=== PATIENT | female | born 1980 | race Caucasian/White ===

== ENCOUNTER 2016-10-26 04:49 | Inpatient (IN) | payer BC ==
[~2016-10-26] VITALS: Ht 162.6 cm; Wt 59.9 kg
[2016-10-26] VITALS (10 sets, daily range): BP systolic 104–124
[2016-10-26 05:38] LABS: BILIRUBIN,URINE 1+ (NEGATIVE); BLOOD, URINE 2+ (NEGATIVE); CLARITY/URINE CLOUDY (CLEAR); COLOR,URINE YELLOW (YELLOW); GLUCOSE,URINE NEGATIVE (NEGATIVE); KETONES,URINE TRACE (NEGATIVE); LEUKOCYTE ESTERASE ,URINE NEGATIVE (NEGATIVE); NITRITE, URINE NEGATIVE (NEGATIVE); PH,URINE 5.5 (5.0-8.0); PROTEIN URINE 2+ (NEGATIVE)
[2016-10-26] MEDS ORDERED: MORPHINE 4 MG/ML INJ. SYRINGE IVP ONE (05:45)
[2016-10-26] MEDS ORDERED: NACL 0.9% 1,000 ML IV ONE (05:45)
[2016-10-26] MEDS ORDERED: PROCHLORPERAZINE EDISYLATE 10 MG/2 ML VIAL IVP ONE (05:45)
[2016-10-26 05:46] LABS: BACTERIA,URINE MODERATE /HPF (None Seen); RBC,URINE 0-3 /HPF (0-3)
[2016-10-26 05:47] LABS: FINE GRANULAR CASTS,URINE 0-10 /LPF (None Seen); MUCUS,URINE None Seen /LPF (None Seen); URINE AMORPHOUS URATE 2+ /HPF (None Seen)
[2016-10-26 05:58] LABS: HEMATOCRIT 45.7 % (36-48); HEMOGLOBIN 14.6 g/dL (12.0-16.0); MEAN CORPUSCULAR HEMOGLOBIN 29 pg (27-31); MEAN CORPUSCULAR HGB CONC 32 % (32-36); MEAN CORPUSCULAR VOLUME 91 fL (79.0-98.0); PLATELET COUNT (AUTO) 381 K/uL (130-430); RED CELL DISTRIBUTION WIDTH 11.9 % (9.0-15.0); WHITE BLOOD COUNT (AUTO) 12.4 K/uL (4.8-10.8)
[2016-10-26 06:04] LABS: CALCIUM 8.6 mg/dL (8.4-11.0); CREATININE 1.28 mg/dL (0.55-1.30)
[2016-10-26 06:08] LABS: ALBUMIN 2.9 g/dL (3.4-4.8); TOTAL BILIRUBIN 0.7 mg/dL (0.0-1.0); TOTAL PROTEIN, SERUM 7.2 g/dL (6.4-8.3)
[2016-10-26 06:19] LABS: BAND % (MANUAL) 19 % (0-6); BASOPHILS % (MANUAL) 0 % (0-2); EOSINOPHILS % (MANUAL) 1 % (0-7); LYMPHOCYTES % (MANUAL) 11 % (20-46); MONOCYTES % (MANUAL) 4 % (0-11)
[2016-10-26] MEDS ORDERED: IOHEXOL 100 ML IV ONE (06:40)
[2016-10-26] MEDS ORDERED: MORPHINE 2 MG/ML INJ. SYRINGE IVP ONE (06:45)
[2016-10-26] MEDS ORDERED: DIPHENHYDRAMINE INJ 50 MG/ML VIAL IVP ONE (08:30)
[2016-10-26] MEDS ORDERED: PIPERACILLIN/TAZO 3.375 GM in NS 50 ML IV ONE (08:30)
[2016-10-26] MEDS ORDERED: HYDROmorphone 1 MG INJ. 1 MG/ML AMPUL IVP ONE (08:30)
[2016-10-26] MEDS ORDERED: ONDANSETRON HCL 4 MG/2 ML VIAL IVP ONE ×2 (08:30→17:30)
[2016-10-26] MEDS ORDERED: PIPERACILLIN/TAZOBACTAM 3.375 GM/VIAL (ZOSYN) IV ONE (08:33)
[2016-10-26] MEDS ORDERED: HYDROmorphone 1 MG INJ. 1 MG/ML AMPUL IVP PRN (10:00)
[2016-10-26] MEDS ORDERED: ONDANSETRON HCL 4 MG/2 ML VIAL IVP PRN ×3 (10:00→19:30)
[2016-10-26 10:04] LABS: INR 1.1 (0.8-1.2); PROTHROMBIN TIME 12.4 SECS (9.5-12.5)
[2016-10-26] MEDS: PIPERACILLIN/TAZO 3.375/DEX-IS 50 ML IV SCH ×2 (12:17→21:47)
[2016-10-26] MEDS ORDERED: SEVOFLURANE 15 MIN GAS INH ONE (17:30)
[2016-10-26] MEDS ORDERED: ACETAMINOPHEN 650 MG SUPP.RECT RC PRN ×2 (17:30→17:45)
[2016-10-26] MEDS ORDERED: MIDAZOLAM HCL 5 MG/5 ML VIAL IVP ONE (17:30)
[2016-10-26] MEDS ORDERED: LR 1,000 ML IV.SOLN IV ONE (17:30)
[2016-10-26] MEDS ORDERED: NS 1000 ML BAG IV ONE (17:30)
[2016-10-26] MEDS ORDERED: ACETAMINOPHEN 325 MG TABLET PO PRN ×3 (17:30→19:30)
[2016-10-26] MEDS ORDERED: GLYCOPYRROLATE 0.2 MG/ML VIAL IJ ONE (17:30)
[2016-10-26] MEDS ORDERED: PROPOFOL 200MG/ 20ML VIAL (DIPRIVAN) IV ONE (17:30)
[2016-10-26] MEDS ORDERED: fentaNYL CITRATE 250 MCG/5 ML AMP IV ONE (17:30)
[2016-10-26] MEDS ORDERED: BUPIVACAINE /EPINEPHRINE/PF 0.25% 30 ML VIAL INJ ONE (17:30)
[2016-10-26] MEDS ORDERED: NEOSTIGMINE METHYLSULFATE 1 MG/ML, 10 ML VIAL IVP ONE (17:30)
[2016-10-26] MEDS ORDERED: ROCURONIUM BROMIDE 10 MG/ML (ZEMURON) IV ONE (17:30)
[2016-10-26] MEDS: D5LR 1,000 ML IV SCH ×2 (17:32→23:10)
[2016-10-26] MEDS ORDERED: MORPHINE 2 MG/ML INJ. SYRINGE IVP PRN ×4 (18:30→19:45)
[2016-10-26] MEDS ORDERED: MORPHINE 4 MG/ML INJ. SYRINGE IVP PRN (18:30)
[2016-10-26] MEDS ORDERED: HYDROcodone/ACETAMIN 5-325 MG TAB (NORCO/ VICODIN) PO PRN (19:30)
[2016-10-26] MEDS ORDERED: LR 1,000 ML IV SCH (19:41)
[2016-10-26] MEDS ORDERED: METOCLOPRAMIDE HCL 10 MG/2 ML VIAL IVP PRN (19:45)
[2016-10-26] MEDS: D5/0.45 NS 1,000 ML IV SCH (21:04)
[2016-10-26] MEDS ORDERED: metroNIDAZOLE 500 mg/NS 100 ML IV ONE (21:50)
[2016-10-26] MEDS ORDERED: CEFAZOLIN 2 GM IVPB PREMIX 50 ML IV ONE (21:51)
[2016-10-26] MEDS: CEFAZOLIN 2 GM IVPB PREMIX 50 ML IV SCH (22:22)
[2016-10-26] MEDS: metroNIDAZOLE 500 mg/NS 100 ML IV SCH (22:28)
[2016-10-26] MEDS: HYDROmorphone 1 MG INJ. 1 MG/ML AMPUL IVP PRN (23:40)
[2016-10-27] VITALS (21 sets, daily range): BP systolic 109–131
[2016-10-27] MEDS ORDERED: CEFAZOLIN 2 GM IVPB PREMIX 50 ML IV ONE (00:12)
[2016-10-27] MEDS ORDERED: metroNIDAZOLE 500 mg/NS 100 ML IV ONE (00:12)
[2016-10-27] MEDS: PIPERACILLIN/TAZO 3.375/DEX-IS 50 ML IV SCH ×5 (01:39→23:59)
[2016-10-27] MEDS: metroNIDAZOLE 500 mg/NS 100 ML IV SCH (03:01)
[2016-10-27] MEDS: CEFAZOLIN 2 GM IVPB PREMIX 50 ML IV SCH (04:28)
[2016-10-27] MEDS: D5/0.45 NS 1,000 ML IV SCH ×2 (05:32→08:43)
[2016-10-27 06:40] LABS: BASOPHILS % (AUTO) 0.1 % (0.0-2.0); HEMOGLOBIN 12.8 g/dL (12.0-16.0); LYMPHOCYTES # (AUTO) 0.5 K/uL (1.0-5.5); MONOCYTES % (AUTO) 8.6 % (1.7-9.3); RED CELL DISTRIBUTION WIDTH 12.1 % (9.0-15.0)
[2016-10-27 07:04] LABS: EOSINOPHILS % (AUTO) 0.2 % (0.0-4.0); HEMATOCRIT 38.9 % (36-48); LYMPHOCYTES % (AUTO) 5.5 % (20.5-51.5); MEAN CORPUSCULAR HEMOGLOBIN 30 pg (27-31); MEAN CORPUSCULAR HGB CONC 33 % (32-36); MEAN CORPUSCULAR VOLUME 92 fL (79.0-98.0); MONOCYTES # (AUTO) 0.7 K/uL (0.0-1.0); NEUTROPHILS # (AUTO) 7.4 K/uL (1.8-7.7); NEUTROPHILS % (AUTO) 85.6 % (40.0-70.0); PLATELET COUNT (AUTO) 376 K/uL (130-430); RED BLOOD CELL COUNT(AUTO) 4.24 MIL/uL (4.2-6.2); WHITE BLOOD COUNT (AUTO) 8.6 K/uL (4.8-10.8)
[2016-10-27 07:16] LABS: ALBUMIN 1.8 g/dL (3.4-4.8); CALCIUM 7.4 mg/dL (8.4-11.0); CREATININE 1.09 mg/dL (0.55-1.30); POTASSIUM 3.7 mmol/L (3.5-5.1); TOTAL BILIRUBIN 0.4 mg/dL (0.0-1.0); TOTAL PROTEIN, SERUM 5.7 g/dL (6.4-8.3)
[2016-10-27] MEDS: HYDROmorphone 1 MG INJ. 1 MG/ML AMPUL IVP PRN ×4 (08:50→21:14)
[2016-10-27] MEDS ORDERED: DEXTROSE 50% JECT 50 ML DISP.SYRIN IVP PRN (09:45)
[2016-10-27] MEDS ORDERED: *PPN PER PHARMACY XX PRN (09:45)
[2016-10-27 10:28] LABS: PHOSPHORUS 2.5 mg/dL (2.7-4.5)
[2016-10-27] MEDS: D5LR 1,000 ML IV SCH ×2 (11:38→16:25)
[2016-10-27 14:00] LABS: BASOPHILS # (AUTO) 0.1 K/uL (0.0-0.2); BASOPHILS % (AUTO) 0.8 % (0.0-2.0); EOSINOPHILS % (AUTO) 0.1 % (0.0-4.0); HEMATOCRIT 35.5 % (36-48); HEMOGLOBIN 12.1 g/dL (12.0-16.0); LYMPHOCYTES # (AUTO) 0.6 K/uL (1.0-5.5); LYMPHOCYTES % (AUTO) 6.8 % (20.5-51.5); MEAN CORPUSCULAR HEMOGLOBIN 30 pg (27-31); MEAN CORPUSCULAR HGB CONC 34 % (32-36); MEAN CORPUSCULAR VOLUME 88 fL (79.0-98.0); MONOCYTES # (AUTO) 0.7 K/uL (0.0-1.0); MONOCYTES % (AUTO) 8.3 % (1.7-9.3); PLATELET COUNT (AUTO) 349 K/uL (130-430); RED BLOOD CELL COUNT(AUTO) 4.03 MIL/uL (4.2-6.2); RED CELL DISTRIBUTION WIDTH 12.3 % (9.0-15.0); WHITE BLOOD COUNT (AUTO) 8.4 K/uL (4.8-10.8)
[2016-10-27] MEDS: INSULIN REGULAR, HUMAN 100 UNITS/ML, 10 ML VIAL (novoLIN R) SUBCUT PRN (17:57)
[2016-10-27] MEDS ORDERED: TPN PERIPHERAL 0.0001 ML, SODIUM ACETATE 40 MEQ, POTASSIUM CHLORIDE 20 MEQ, K PHOS 9 MM... IV SCH ×10 (18:00)
[2016-10-27] MEDS: FAT EMULSIONS 250 ML IV SCH (18:00)
[2016-10-27] MEDS: TPN PERIPHERAL 0.0001 ML, SODIUM ACETATE 40 MEQ, POTASSIUM CHLORIDE 20 MEQ, K PHOS 9 MM... IV SCH ×10 (18:01)
[2016-10-27 21:00] LABS: ALBUMIN 1.7 g/dL (3.4-4.8); CALCIUM 7.6 mg/dL (8.4-11.0); CREATININE 0.94 mg/dL (0.55-1.30); POTASSIUM 3.6 mmol/L (3.5-5.1); TOTAL BILIRUBIN 0.4 mg/dL (0.0-1.0); TOTAL PROTEIN, SERUM 5.4 g/dL (6.4-8.3)
[2016-10-28] VITALS (8 sets, daily range): BP systolic 108–118
[2016-10-28] MEDS: INSULIN REGULAR, HUMAN 100 UNITS/ML, 10 ML VIAL (novoLIN R) SUBCUT PRN ×4 (00:35→17:53)
[2016-10-28] MEDS: D5LR 1,000 ML IV SCH ×2 (03:09→20:11)
[2016-10-28] MEDS: PIPERACILLIN/TAZO 3.375/DEX-IS 50 ML IV SCH ×4 (05:14→23:28)
[2016-10-28 06:41] LABS: EOSINOPHILS % (AUTO) 0.1 % (0.0-4.0); HEMATOCRIT 33.5 % (36-48); HEMOGLOBIN 11.3 g/dL (12.0-16.0); LYMPHOCYTES # (AUTO) 0.5 K/uL (1.0-5.5); LYMPHOCYTES % (AUTO) 5.4 % (20.5-51.5); MEAN CORPUSCULAR HEMOGLOBIN 31 pg (27-31); MEAN CORPUSCULAR HGB CONC 34 % (32-36); MEAN CORPUSCULAR VOLUME 91 fL (79.0-98.0); MONOCYTES # (AUTO) 0.8 K/uL (0.0-1.0); MONOCYTES % (AUTO) 7.8 % (1.7-9.3); NEUTROPHILS # (AUTO) 8.6 K/uL (1.8-7.7); NEUTROPHILS % (AUTO) 86.7 % (40.0-70.0); PLATELET COUNT (AUTO) 349 K/uL (130-430); RED BLOOD CELL COUNT(AUTO) 3.68 MIL/uL (4.2-6.2); RED CELL DISTRIBUTION WIDTH 12.2 % (9.0-15.0); WHITE BLOOD COUNT (AUTO) 9.9 K/uL (4.8-10.8)
[2016-10-28 06:56] LABS: CALCIUM 7.5 mg/dL (8.4-11.0); CREATININE 0.71 mg/dL (0.55-1.30); PHOSPHORUS 1.5 mg/dL (2.7-4.5); POTASSIUM 3.5 mmol/L (3.5-5.1)
[2016-10-28] MEDS: HYDROmorphone 1 MG INJ. 1 MG/ML AMPUL IVP PRN ×3 (08:17→20:35)
[2016-10-28] MEDS ORDERED: K PHOS 30 MM in NS 250 ML IV ONE (09:30)
[2016-10-28] MEDS: FAT EMULSIONS 250 ML IV SCH (17:49)
[2016-10-28] MEDS: TPN PERIPHERAL 0.0001 ML, SODIUM ACETATE 40 MEQ, POTASSIUM CHLORIDE 20 MEQ, K PHOS 9 MM... IV SCH ×10 (17:55)
[2016-10-29] VITALS: BP_SYST 109
[2016-10-29] MEDS: HYDROmorphone 1 MG INJ. 1 MG/ML AMPUL IVP PRN ×4 (02:16→21:15)
[2016-10-29 03:22] VITALS: BP_SYST 120
[2016-10-29] MEDS: PIPERACILLIN/TAZO 3.375/DEX-IS 50 ML IV SCH ×3 (05:23→18:00)
[2016-10-29] MEDS: D5LR 1,000 ML IV SCH ×2 (05:41→15:23)
[2016-10-29 07:17] LABS: BASOPHILS % (AUTO) 0.1 % (0.0-2.0); EOSINOPHILS # (AUTO) 0.1 K/uL (0.0-0.4); EOSINOPHILS % (AUTO) 0.8 % (0.0-4.0); LYMPHOCYTES % (AUTO) 8.6 % (20.5-51.5); MONOCYTES # (AUTO) 0.8 K/uL (0.0-1.0); RED CELL DISTRIBUTION WIDTH 12.4 % (9.0-15.0)
[2016-10-29 07:19] LABS: ALBUMIN 1.5 g/dL (3.4-4.8); CALCIUM 7.6 mg/dL (8.4-11.0); CREATININE 0.58 mg/dL (0.55-1.30); PHOSPHORUS 2.3 mg/dL (2.7-4.5); POTASSIUM 3.2 mmol/L (3.5-5.1); TOTAL BILIRUBIN 0.4 mg/dL (0.0-1.0)
[2016-10-29 07:36] LABS: HEMATOCRIT 32.1 % (36-48); HEMOGLOBIN 10.4 g/dL (12.0-16.0); LYMPHOCYTES # (AUTO) 0.8 K/uL (1.0-5.5); MEAN CORPUSCULAR HEMOGLOBIN 30 pg (27-31); MEAN CORPUSCULAR HGB CONC 33 % (32-36); MEAN CORPUSCULAR VOLUME 91 fL (79.0-98.0); MONOCYTES % (AUTO) 8.5 % (1.7-9.3); NEUTROPHILS # (AUTO) 8.1 K/uL (1.8-7.7); PLATELET COUNT (AUTO) 346 K/uL (130-430); RED BLOOD CELL COUNT(AUTO) 3.53 MIL/uL (4.2-6.2); WHITE BLOOD COUNT (AUTO) 9.8 K/uL (4.8-10.8)
[2016-10-29 08:00] VITALS: BP_SYST 119
[2016-10-29 12:00] VITALS: BP_SYST 103
[2016-10-29] MEDS: metroNIDAZOLE 500 mg/NS 100 ML IV SCH ×2 (15:07→23:20)
[2016-10-29] MEDS ORDERED: K PHOS 15 MM in NS 250 ML IV ONE (16:15)
[2016-10-29 17:06] VITALS: BP_SYST 103
[2016-10-29 17:32] VITALS: BP_SYST 105
[2016-10-29] MEDS ORDERED: [UNRECOGNIZED DRUG - OTHER] IV SCH ×10 (18:00)
[2016-10-29] MEDS ORDERED: TPN PERIPHERAL IV SCH ×10 (18:00)
[2016-10-29] MEDS ORDERED: SODIUM CHLORIDE IV SCH ×10 (18:00)
[2016-10-29] MEDS ORDERED: POTASSIUM CHLORIDE IV SCH ×10 (18:00)
[2016-10-29] MEDS: FAT EMULSIONS 250 ML IV SCH (19:06)
[2016-10-30 00:29] VITALS: BP_SYST 114
[2016-10-30] MEDS: PIPERACILLIN/TAZO 3.375/DEX-IS 50 ML IV SCH ×4 (00:29→18:00)
[2016-10-30] MEDS: HYDROmorphone 1 MG INJ. 1 MG/ML AMPUL IVP PRN ×6 (03:30→23:15)
[2016-10-30] MEDS: D5LR 1,000 ML IV SCH ×2 (03:30→15:23)
[2016-10-30 04:28] VITALS: BP_SYST 119
[2016-10-30] MEDS: metroNIDAZOLE 500 mg/NS 100 ML IV SCH ×3 (06:24→23:14)
[2016-10-30] MEDS: INSULIN REGULAR, HUMAN 100 UNITS/ML, 10 ML VIAL (novoLIN R) SUBCUT PRN (06:31)
[2016-10-30 07:14] LABS: BASOPHILS % (AUTO) 0.1 % (0.0-2.0); EOSINOPHILS # (AUTO) 0.2 K/uL (0.0-0.4); EOSINOPHILS % (AUTO) 1.6 % (0.0-4.0); HEMATOCRIT 31.6 % (36-48); HEMOGLOBIN 10.7 g/dL (12.0-16.0); LYMPHOCYTES # (AUTO) 1.1 K/uL (1.0-5.5); LYMPHOCYTES % (AUTO) 9.5 % (20.5-51.5); MEAN CORPUSCULAR HEMOGLOBIN 31 pg (27-31); MEAN CORPUSCULAR HGB CONC 34 % (32-36); MEAN CORPUSCULAR VOLUME 90 fL (79.0-98.0); MONOCYTES # (AUTO) 0.8 K/uL (0.0-1.0); MONOCYTES % (AUTO) 7.5 % (1.7-9.3); NEUTROPHILS % (AUTO) 81.3 % (40.0-70.0); PLATELET COUNT (AUTO) 348 K/uL (130-430); RED BLOOD CELL COUNT(AUTO) 3.51 MIL/uL (4.2-6.2); RED CELL DISTRIBUTION WIDTH 12.4 % (9.0-15.0); WHITE BLOOD COUNT (AUTO) 11.1 K/uL (4.8-10.8)
[2016-10-30 07:30] LABS: CALCIUM 7.3 mg/dL (8.4-11.0); CREATININE 0.53 mg/dL (0.55-1.30); PHOSPHORUS 3.8 mg/dL (2.7-4.5); POTASSIUM 3.1 mmol/L (3.5-5.1)
[2016-10-30] MEDS ORDERED: POTASSIUM CHLORIDE 40 MEQ, LIDOCAINE JECT 2% PF 100 MG 50 MG in NS 250 ML IV ONE (12:15)
[2016-10-30 12:44] VITALS: BP_SYST 110
[2016-10-30] MEDS ORDERED: METOCLOPRAMIDE HCL 10 MG/2 ML VIAL IVP ONE (13:00)
[2016-10-30 16:11] VITALS: BP_SYST 121
[2016-10-30] MEDS ORDERED: SODIUM CHLORIDE IV SCH ×10 (18:00)
[2016-10-30] MEDS ORDERED: POTASSIUM CHLORIDE IV SCH ×10 (18:00)
[2016-10-30] MEDS ORDERED: TPN PERIPHERAL IV SCH ×10 (18:00)
[2016-10-30] MEDS ORDERED: [UNRECOGNIZED DRUG - OTHER] IV SCH ×10 (18:00)
[2016-10-30] MEDS: METOCLOPRAMIDE HCL 10 MG/2 ML VIAL IVP SCH (18:28)
[2016-10-30 20:12] VITALS: BP_SYST 111
[2016-10-30] MEDS: FAT EMULSIONS 250 ML IV SCH (20:55)
[2016-10-31 00:16] VITALS: BP_SYST 116
[2016-10-31] MEDS: PIPERACILLIN/TAZO 3.375/DEX-IS 50 ML IV SCH ×2 (00:58→05:32)
[2016-10-31] MEDS: METOCLOPRAMIDE HCL 10 MG/2 ML VIAL IVP SCH ×5 (01:12→23:31)
[2016-10-31] MEDS: HYDROmorphone 1 MG INJ. 1 MG/ML AMPUL IVP PRN ×6 (02:30→22:45)
[2016-10-31 03:31] VITALS: BP_SYST 118
[2016-10-31] MEDS: D5LR 1,000 ML IV SCH ×3 (03:41→14:36)
[2016-10-31] MEDS: metroNIDAZOLE 500 mg/NS 100 ML IV SCH ×3 (06:35→22:44)
[2016-10-31 07:25] LABS: BASOPHILS % (AUTO) 0.2 % (0.0-2.0); EOSINOPHILS # (AUTO) 0.5 K/uL (0.0-0.4)
[2016-10-31 07:40] LABS: ALBUMIN 1.4 g/dL (3.4-4.8); CALCIUM 7.1 mg/dL (8.4-11.0); CREATININE 0.53 mg/dL (0.55-1.30); PHOSPHORUS 3.7 mg/dL (2.7-4.5); POTASSIUM 3.4 mmol/L (3.5-5.1); TOTAL BILIRUBIN 0.4 mg/dL (0.0-1.0); TOTAL PROTEIN, SERUM 4.6 g/dL (6.4-8.3)
[2016-10-31 07:41] LABS: EOSINOPHILS % (AUTO) 3.9 % (0.0-4.0); HEMATOCRIT 32.2 % (36-48); HEMOGLOBIN 10.6 g/dL (12.0-16.0); LYMPHOCYTES # (AUTO) 1.3 K/uL (1.0-5.5); LYMPHOCYTES % (AUTO) 10.7 % (20.5-51.5); MEAN CORPUSCULAR HEMOGLOBIN 29 pg (27-31); MEAN CORPUSCULAR HGB CONC 33 % (32-36); MEAN CORPUSCULAR VOLUME 89 fL (79.0-98.0); MONOCYTES % (AUTO) 8.1 % (1.7-9.3); NEUTROPHILS # (AUTO) 9.7 K/uL (1.8-7.7); NEUTROPHILS % (AUTO) 77.1 % (40.0-70.0); PLATELET COUNT (AUTO) 394 K/uL (130-430); RED BLOOD CELL COUNT(AUTO) 3.61 MIL/uL (4.2-6.2); RED CELL DISTRIBUTION WIDTH 12.4 % (9.0-15.0); WHITE BLOOD COUNT (AUTO) 12.5 K/uL (4.8-10.8)
[2016-10-31 08:17] VITALS: BP_SYST 114
[2016-10-31] MEDS ORDERED: GASTROGRAFIN 120 ML ONE (11:44)
[2016-10-31 12:28] VITALS: BP_SYST 114
[2016-10-31 16:43] VITALS: BP_SYST 119
[2016-10-31] MEDS ORDERED: POTASSIUM CHLORIDE 40 MEQ, LIDOCAINE JECT 2% PF 100 MG 50 MG in NS 250 ML IV ONE (18:00)
[2016-10-31] MEDS: [UNRECOGNIZED DRUG - OTHER] IV SCH ×10 (19:07)
[2016-10-31] MEDS: TPN PERIPHERAL IV SCH ×10 (19:07)
[2016-10-31] MEDS: POTASSIUM CHLORIDE IV SCH ×10 (19:07)
[2016-10-31] MEDS: SODIUM CHLORIDE IV SCH ×10 (19:07)
[2016-10-31] MEDS: FAT EMULSIONS 250 ML IV SCH (19:10)
[2016-10-31 19:12] VITALS: BP_SYST 125
[2016-10-31] MEDS ORDERED: BISACODYL 10 MG/SUPPOSITORY RC ONE (22:15)
[2016-10-31] MEDS ORDERED: MINERAL OIL 30 ML UDC NG ONE (22:15)
[2016-10-31] MEDS: ENOXAPARIN SODIUM 40 MG/0.4 ML SYRINGE SUBCUT SCH (22:43)
[2016-10-31] MEDS: VANCOMYCIN HCL 1,000 MG in NS 250 ML IV SCH (22:50)
[2016-10-31 23:05] LABS: INR 1.2 (0.8-1.2)
[2016-11-01] VITALS (7 sets, daily range): BP systolic 116–133
[2016-11-01] MEDS: METOCLOPRAMIDE HCL 10 MG/2 ML VIAL IVP SCH ×4 (05:15→23:56)
[2016-11-01] MEDS: metroNIDAZOLE 500 mg/NS 100 ML IV SCH ×3 (05:16→23:56)
[2016-11-01] MEDS: HYDROmorphone 1 MG INJ. 1 MG/ML AMPUL IVP PRN ×3 (06:02→20:34)
[2016-11-01 06:34] LABS: BASOPHILS % (AUTO) 0.2 % (0.0-2.0); EOSINOPHILS # (AUTO) 0.6 K/uL (0.0-0.4); EOSINOPHILS % (AUTO) 4.4 % (0.0-4.0); HEMATOCRIT 32.9 % (36-48); HEMOGLOBIN 10.8 g/dL (12.0-16.0); LYMPHOCYTES # (AUTO) 1.4 K/uL (1.0-5.5); MEAN CORPUSCULAR HEMOGLOBIN 30 pg (27-31); MEAN CORPUSCULAR HGB CONC 33 % (32-36); MEAN CORPUSCULAR VOLUME 90 fL (79.0-98.0); MONOCYTES # (AUTO) 0.9 K/uL (0.0-1.0); MONOCYTES % (AUTO) 6.7 % (1.7-9.3); NEUTROPHILS % (AUTO) 78.7 % (40.0-70.0); PLATELET COUNT (AUTO) 449 K/uL (130-430); RED BLOOD CELL COUNT(AUTO) 3.65 MIL/uL (4.2-6.2); RED CELL DISTRIBUTION WIDTH 12.4 % (9.0-15.0); WHITE BLOOD COUNT (AUTO) 13.9 K/uL (4.8-10.8)
[2016-11-01 06:43] LABS: ALBUMIN 1.6 g/dL (3.4-4.8); CALCIUM 7.2 mg/dL (8.4-11.0); CREATININE 0.49 mg/dL (0.55-1.30); PHOSPHORUS 3.2 mg/dL (2.7-4.5); TOTAL BILIRUBIN 0.4 mg/dL (0.0-1.0); TOTAL PROTEIN, SERUM 4.8 g/dL (6.4-8.3)
[2016-11-01 07:17] LABS: IRON (SERUM) 24 mcg/dL (37-145); TOTAL IRON BIND. CAPACITY 110 ug/dL (250-450)
[2016-11-01] MEDS: VANCOMYCIN HCL 1,000 MG in NS 250 ML IV SCH ×2 (08:57→18:32)
[2016-11-01] MEDS ORDERED: MULTIVITS,CA,MINERALS/IRON/FA 1 TABLET PO ONE (11:30)
[2016-11-01] MEDS ORDERED: CHOLECALCIFEROL (VITAMIN D3) 2,000 UNIT TABLET PO ONE (12:15)
[2016-11-01] MEDS ORDERED: COMMUNICATION ORDER XX ONE (17:15)
[2016-11-01] MEDS: CHOLECALCIFEROL (VITAMIN D3) 2,000 UNIT TABLET PO SCH (18:08)
[2016-11-01] MEDS: MULTIVITS,CA,MINERALS/IRON/FA 1 TABLET PO SCH (18:09)
[2016-11-01] MEDS: FAT EMULSIONS 250 ML IV SCH (18:33)
[2016-11-01] MEDS: TPN PERIPHERAL IV SCH ×10 (18:34)
[2016-11-01] MEDS: POTASSIUM CHLORIDE IV SCH ×10 (18:34)
[2016-11-01] MEDS: SODIUM CHLORIDE IV SCH ×10 (18:34)
[2016-11-01] MEDS: [UNRECOGNIZED DRUG - OTHER] IV SCH ×10 (18:34)
[2016-11-01] MEDS ORDERED: BISACODYL 10 MG/SUPPOSITORY RC ONE (18:35)
[2016-11-01] MEDS: ENOXAPARIN SODIUM 40 MG/0.4 ML SYRINGE SUBCUT SCH (20:33)
[2016-11-01] MEDS: BISACODYL 10 MG/SUPPOSITORY RC SCH (20:33)
[2016-11-02 00:20] VITALS: BP_SYST 124
[2016-11-02 04:10] VITALS: BP_SYST 122
[2016-11-02] MEDS: metroNIDAZOLE 500 mg/NS 100 ML IV SCH ×3 (06:02→21:30)
[2016-11-02] MEDS: METOCLOPRAMIDE HCL 10 MG/2 ML VIAL IVP SCH ×3 (06:02→17:53)
[2016-11-02] MEDS: VANCOMYCIN HCL 1,000 MG in NS 250 ML IV SCH ×2 (06:03→17:53)
[2016-11-02 06:06] LABS: FOLATE (FOLIC ACID) 16.3 ng/mL (>3.0)
[2016-11-02 06:42] LABS: BASOPHILS # (AUTO) 0.3 K/uL (0.0-0.2); EOSINOPHILS # (AUTO) 0.4 K/uL (0.0-0.4); EOSINOPHILS % (AUTO) 2.8 % (0.0-4.0); HEMATOCRIT 31.8 % (36-48); HEMOGLOBIN 10.7 g/dL (12.0-16.0); LYMPHOCYTES # (AUTO) 1.4 K/uL (1.0-5.5); LYMPHOCYTES % (AUTO) 9.6 % (20.5-51.5); MEAN CORPUSCULAR HEMOGLOBIN 30 pg (27-31); MEAN CORPUSCULAR HGB CONC 34 % (32-36); MEAN CORPUSCULAR VOLUME 90 fL (79.0-98.0); MONOCYTES # (AUTO) 1.1 K/uL (0.0-1.0); MONOCYTES % (AUTO) 7.8 % (1.7-9.3); NEUTROPHILS # (AUTO) 10.9 K/uL (1.8-7.7); NEUTROPHILS % (AUTO) 77.8 % (40.0-70.0); PLATELET COUNT (AUTO) 499 K/uL (130-430); RED BLOOD CELL COUNT(AUTO) 3.53 MIL/uL (4.2-6.2); RED CELL DISTRIBUTION WIDTH 12.4 % (9.0-15.0); WHITE BLOOD COUNT (AUTO) 14.1 K/uL (4.8-10.8)
[2016-11-02 06:58] LABS: CALCIUM 7.5 mg/dL (8.4-11.0); CREATININE 0.5 mg/dL (0.55-1.30); PHOSPHORUS 4.2 mg/dL (2.7-4.5); POTASSIUM 3.9 mmol/L (3.5-5.1)
[2016-11-02 08:20] VITALS: BP_SYST 126
[2016-11-02] MEDS: BISACODYL 10 MG/SUPPOSITORY RC SCH ×2 (09:00→21:00)
[2016-11-02] MEDS: MULTIVITS,CA,MINERALS/IRON/FA 1 TABLET PO SCH ×2 (09:51→17:52)
[2016-11-02] MEDS: CHOLECALCIFEROL (VITAMIN D3) 2,000 UNIT TABLET PO SCH ×2 (09:52→17:52)
[2016-11-02 12:16] VITALS: BP_SYST 123
[2016-11-02 16:33] VITALS: BP_SYST 119
[2016-11-02] MEDS: FAT EMULSIONS 250 ML IV SCH (18:00)
[2016-11-02] MEDS ORDERED: POTASSIUM CHLORIDE IV SCH ×10 (18:00)
[2016-11-02] MEDS ORDERED: SODIUM CHLORIDE IV SCH ×10 (18:00)
[2016-11-02] MEDS ORDERED: TPN PERIPHERAL IV SCH ×10 (18:00)
[2016-11-02] MEDS ORDERED: [UNRECOGNIZED DRUG - OTHER] IV SCH ×10 (18:00)
[2016-11-02 20:59] VITALS: BP_SYST 123
[2016-11-02] MEDS: ENOXAPARIN SODIUM 40 MG/0.4 ML SYRINGE SUBCUT SCH (21:30)
[2016-11-03 00:33] VITALS: BP_SYST 112
[2016-11-03] MEDS: METOCLOPRAMIDE HCL 10 MG/2 ML VIAL IVP SCH ×4 (00:33→18:00)
[2016-11-03 04:10] VITALS: BP_SYST 116
[2016-11-03] MEDS: metroNIDAZOLE 500 mg/NS 100 ML IV SCH ×2 (06:14→13:44)
[2016-11-03] MEDS: VANCOMYCIN HCL 1,000 MG in NS 250 ML IV SCH (06:14)
[2016-11-03 07:02] LABS: BASOPHILS % (AUTO) 0.2 % (0.0-2.0); EOSINOPHILS # (AUTO) 0.1 K/uL (0.0-0.4); EOSINOPHILS % (AUTO) 0.7 % (0.0-4.0); HEMATOCRIT 31.2 % (36-48); HEMOGLOBIN 10.5 g/dL (12.0-16.0); LYMPHOCYTES # (AUTO) 1.3 K/uL (1.0-5.5); LYMPHOCYTES % (AUTO) 10.1 % (20.5-51.5); MEAN CORPUSCULAR HEMOGLOBIN 30 pg (27-31); MEAN CORPUSCULAR HGB CONC 34 % (32-36); MEAN CORPUSCULAR VOLUME 90 fL (79.0-98.0); MONOCYTES # (AUTO) 0.9 K/uL (0.0-1.0); MONOCYTES % (AUTO) 6.9 % (1.7-9.3); NEUTROPHILS # (AUTO) 11.1 K/uL (1.8-7.7); NEUTROPHILS % (AUTO) 82.1 % (40.0-70.0); PLATELET COUNT (AUTO) 492 K/uL (130-430); RED BLOOD CELL COUNT(AUTO) 3.47 MIL/uL (4.2-6.2); RED CELL DISTRIBUTION WIDTH 12.2 % (9.0-15.0); WHITE BLOOD COUNT (AUTO) 13.4 K/uL (4.8-10.8)
[2016-11-03 07:15] LABS: ALBUMIN 1.7 g/dL (3.4-4.8); CALCIUM 7.4 mg/dL (8.4-11.0); CREATININE 0.5 mg/dL (0.55-1.30); POTASSIUM 3.5 mmol/L (3.5-5.1); TOTAL BILIRUBIN 0.3 mg/dL (0.0-1.0); TOTAL PROTEIN, SERUM 5.2 g/dL (6.4-8.3)
[2016-11-03 08:00] VITALS: BP_SYST 128
[2016-11-03] MEDS: BISACODYL 10 MG/SUPPOSITORY RC SCH (09:00)
[2016-11-03] MEDS: MULTIVITS,CA,MINERALS/IRON/FA 1 TABLET PO SCH ×2 (09:20→18:06)
[2016-11-03] MEDS: CHOLECALCIFEROL (VITAMIN D3) 2,000 UNIT TABLET PO SCH ×2 (09:21→18:06)
[2016-11-03 12:29] VITALS: BP_SYST 128
[2016-11-03 16:45] VITALS: BP_SYST 122
[2016-11-03] MEDS ORDERED: LEVO500T20 PO (17:34)
[2016-11-03] MEDS ORDERED: METR500T PO (17:35)
[2016-11-03] MEDS ORDERED: LACTIN PO (17:36)
[2016-11-03 17:37] VITALS: BP_SYST 124
[2016-11-03] MEDS ORDERED: MULT PO (17:37)
[2016-11-03] MEDS ORDERED: VITD2000 PO (17:38)
[2016-11-03] MEDS ORDERED: POTA20TA83 PO (17:38)
== END 2016-11-03 18:10 | disposition home or self-care (01) | DRG 853 ==
LOC: SED 04:49 → SMU 09:54 → SIC 19:55 → STU 10-28 10:21 → SMU 10-29 14:47 → STU 10-31 22:21 → SMU 11-01 16:15
PROVIDERS: ADMIT Internal Medicine; ATTEND Internal Medicine
PROC: 0DBW4ZZ Excision of Peritoneum, Percutaneous Endoscopic Approach (ICD-10-PCS; 2016-10-26)
PROC: 0DBS4ZZ (ICD-10-PCS; 2016-10-26)
PROC: 0DTJ4ZZ Resection of Appendix, Percutaneous Endoscopic Approach (ICD-10-PCS; principal; 2016-10-26 16:00)
PROC: 3E0336Z Introduction of Nutritional Substance into Peripheral Vein, Percutaneous Approach (ICD-10-PCS; 2016-10-28)
DX: A41.9 Sepsis, unspecified organism (principal); K35.3 Acute appendicitis with localized peritonitis; E43 Unspecified severe protein-calorie malnutrition; J98.11 Atelectasis; K56.7 Ileus, unspecified; D64.9 Anemia, unspecified; E87.6 Hypokalemia; E83.39 Other disorders of phosphorus metabolism; Z88.8 Allergy status to other drugs, medicaments and biological substances
CPT/HCPCS: 36415; 71010; 74250-TC; 76700-TC; 80048; 80053; 80061; 80202-TC; 81000-TC; 82306; 82565-TC; 82607; 82746; 82962; 83540-TC; 83550-TC; 83605; 83690-TC; 83735-TC; 84100-TC; 84478-TC; 85007; 85025; 85027; 85610-TC; 85730-TC; 86886; 86900; 86901; 87040-TC; 87070-TC; 87075-TC; 87081; 87086; 87186-TC; 88304; 94010; 94760; 96365; 96375; 96376; 99285; J0610; J0690; J0696; J0780; J1170; J1200; J1650; J1815; J2250; J2270; J2405; J2543; J2704; J2710; J2765; J3010; J3370; J3475; J3480; J3490; J7030; J7040; J7050; J7060; J7120; J7131; Q9963; Q9967